=== PATIENT | female | born 1975 | race Caucasian/White ===

== ENCOUNTER → 2018-01-24 | Outpatient (CLI) | payer OTHER ==
[~2018-01-24] MED LIST: CEPH-13 PO; PER PO; PHEN200T32 PO
--- NOTE | 2018-01-24 09:05 | RADIOLOGY IMAGING REPORT ---
FACILITY: [facility] PATIENT NAME: Alyssia Zambrano : 1975 MR: [id number] V: [id number] EXAM DATE: ORDERING PHYSICIAN: TABITHA MICHELLE TECHNOLOGIST: Location: [facility] [place] Patient: Alyssia Zambrano : 1975 Visit/Account:[id number] Date of Sevice: 01/24/2018 SINUSES W/O CONTRAST History: Deviated septum, allergic rhinitis COMPARISON STUDIES: none TECHNIQUE: Axial images were obtained through the paranasal sinuses. Coronal reformatted images wer e obtained from the axial source data. No IV contrast was administered. Dose Lowering Technique One of the following dose optimization techniques was utilized in the performance of this exam: Autom ated exposure control; adjustment of the mA and/or kV according to the patient's size; or use of an i terative reconstruction technique. Specific details can be referenced in the facility's radiology C T exam operational policy. FINDINGS: Osseous structures: There is a very prominent sinusoidal curvature to the nasal septum.. This mild narrowing of the right TMJ Sinuses: There is very mild mucosal thickening in the left maxillary sinus. There is narrowing of th e ostiomeatal complex on the left secondary to soft tissue density material. No air-fluid levels are identified in the paranasal sinuses Soft Tissues: Negative. Orbits: Normal. Visualized brain: negative IMPRESSION: There is a very prominent sinusoidal curvature of the nasal septum Mild narrowing of the right TMJ Very mild mucosal thickening in left maxillary sinus and narrowing of the left ostiomeatal complex se condary to soft tissue density material. Report Dictated By: Isidra Julio MD at 01/24/2018 8:58 AM Report E-Signed By: Isidra Julio MD at 01/24/2018 9:01 AM WSN:[id number]
== END ==
LOC: CT 00:33
PROVIDERS: ATTEND Otolaryngology
DX: J34.2 Deviated nasal septum (principal); J32.0 Chronic maxillary sinusitis; M26.69 Other specified disorders of temporomandibular joint
CPT/HCPCS: 70486

== ENCOUNTER → 2018-02-16 | Outpatient (CLI) | payer OTHER ==
[2018-02-16 14:09] LABS: INR 0.96
== END ==
LOC: LAB 13:39
PROVIDERS: ATTEND Otolaryngology
DX: Z01.818 Encounter for other preprocedural examination (principal); J34.2 Deviated nasal septum; J30.1 Allergic rhinitis due to pollen
CPT/HCPCS: 36415; 82040; 82247; 82310; 82374; 82435; 82565; 82947; 84075; 84132; 84155; 84295; 84450; 84460; 84520; 85027; 85610; 85730

== ENCOUNTER → 2019-01-01 | Outpatient (CLI) | payer OTHER ==
--- NOTE | 2019-01-01 19:36 | RADIOLOGY IMAGING REPORT ---
FACILITY: [facility] [place] PATIENT NAME: NERISSA GROSS : [id number] MR: [id number] V: [id number] EXAM DATE: ORDERING PHYSICIAN: AKIN MAI TECHNOLOGIST: Nidhi Baldwin PROCEDURE:BILATERAL DIGITAL SCREENING MAMMOGRAM WITH CAD ASSISTED INTERPRETATION & 3D TOMOSYNTHESIS COMPARISON:None. INDICATIONS:SCREENING FINDINGS: Scattered fibroglandular tissue. In the left breast at the inferior aspect of the pectoralis muscle there is an a well circumscribed asymmetry that has no CC correlate that measures 8x4 mm. It has no fatty hilum on the tomosynthesis to confirm as lymph node. No additional abnormalities seen. DIAGNOSTIC CATEGORY 0 Needs additional imaging RECOMMENDATIONS: Recommend exaggerated medial and lateral CC view. 90 degree true ML as well. Ultrasound if needed. IMPRESSION: BIRADS 0: Needs additional imaging. Dictated by: Jeramie Barrera M.D. on 01/01/2019 at 16:20 Transcribed by: ROBERT on 01/01/2019 at 16:28 Approved by: Jeramie Barrera M.D. on 01/01/2019 at 19:35 [facility]
== END ==
LOC: MAMO 01:12
PROVIDERS: ATTEND Physician Assistant
DX: Z12.31 Encounter for screening mammogram for malignant neoplasm of breast (principal); R92.8 Other abnormal and inconclusive findings on diagnostic imaging of breast
CPT/HCPCS: 77063; 77067